=== PATIENT | female | born 1965 | race Caucasian/White ===

== ENCOUNTER 2023-10-26 13:09 | Outpatient (CLI) | payer OTHER ==
--- NOTE | 2023-10-26 16:38 | XRAY Report ---
PROCEDURE: Chest 2V INDICATIONS: CHEST DISCOMFORT TECHNIQUE: 2 views of the chest were acquired. COMPARISON: None. FINDINGS: Surgical changes and devices: None. Lungs and pleura: No pleural effusions or pneumothorax. Lungs are clear. Mediastinum: Mediastinal contours appear normal. Heart size is normal. Bones and chest wall: No suspicious bony lesions. Overlying soft tissues appear unremarkable. IMPRESSION: No acute cardiopulmonary process. Reviewed by: Beatrice Bernard MD on 10/26/2023 4:36 PM PDT Approved by: Beatrice Bernard MD on 10/26/2023 4:36 PM PDT Station ID: [id number]
[2023-10-26 19:40] LABS: BASOPHILS % (AUTO) 0.3 %; EOSINOPHILS % (AUTO) 0.1 %; HCT - HEMATOCRIT 42.7 % (37.0-47.0); HGB - HEMOGLOBIN 13.9 g/dL (12.0-16.0); LYMPHOCYTES % (AUTO) 8.4 %; MEAN CORPUSCULAR HEMOGLOBIN 28.5 pg (27.0-31.0); MEAN CORPUSCULAR HGB CONC 32.6 g/dL (32.0-36.0); MEAN CORPUSCULAR VOLUME 87.7 fL (81.0-99.0); MONOCYTES # (AUTO) 0.9 10^3/uL (0.0-1.0); MONOCYTES % (AUTO) 7.6 %; NEUTROPHILS # (AUTO) 10.3 10^3/uL (1.5-6.6); NEUTROPHILS % (AUTO) 83.4 %; PLT - PLATELET COUNT 264 10^3/uL (130-450); RED BLOOD COUNT 4.87 10^6/uL (4.20-5.40); RED CELL DISTRIBUTION WIDTH 13.2 % (12.0-15.0); WHITE BLOOD COUNT 12.3 x10^3/uL (4.8-10.8)
[2023-10-26 19:57] LABS: ALBUMIN 4.8 g/dL (3.2-5.5); ALBUMIN/GLOBULIN RATIO 1.7 (1.0-2.2); BILIRUBIN,TOTAL 0.7 mg/dL (0.2-1.0); CREATININE 0.7 mg/dL (0.6-1.3); POTASSIUM 3.7 mmol/L (3.5-4.5); TOTAL PROTEIN 7.6 g/dL (6.4-8.9)
[2023-10-26 20:10] LABS: THYROID STIMULATING HORMONE 0.65 uIU/mL (0.34-5.60)
[2023-10-26 20:28] LABS: ESTIMATED AVERAGE GLUCOSE 108 mg/dL (70-100); HEMOGLOBIN A1c% 5.4 % (4.27-6.07)
== END 2023-10-26 13:10 | disposition home or self-care (01) ==
LOC: DI.S 13:09
PROVIDERS: ATTEND Registered Nurse
DX: R07.89 Other chest pain (principal); D25.9 Leiomyoma of uterus, unspecified; G57.02 Lesion of sciatic nerve, left lower limb; M54.30 Sciatica, unspecified side; R52 Pain, unspecified; R68.83 Chills (without fever); K30 Functional dyspepsia; R00.2 Palpitations
CPT/HCPCS: 36415; 80053; 83036; 84443; 84484; 85025

== ENCOUNTER 2023-10-28 13:24 | Emergency (ER) | payer OTHER ==
--- NOTE | 2023-10-28 13:59 | ED Physician Documentation ---
PD HPI ABD PAIN - Stated complaint Stated Complaint: LRQ ABD PX, BLEED - Chief complaint Chief Complaint: Abd Pain - History obtained from History obtained from: Patient - History of Present Illness Timing - duration: Days (2) Timing - details: Gradual onset Pain level max: 7 Pain level now: 7 Quality: Aching, Pain Associated symptoms: Hematuria. No: Fever, Nausea, Vomiting, Hematemesis, Diarrhea, Constipation, Melena, Hematochezia, Dysuria, Chest pain, Dizzy, Near syncope / syncope, Loss of appetite, Weight loss, Vaginal bleeding, Vaginal dc - Additional information Additional information: Patient is a 58-year-old female who presents to the emergency department with 2 days of worsening right lower quadrant abdominal pain. Worse with movement, better with rest. She states the pain is gradually worsened over the past 2 day s. She states that it is worse going over bumps in the car. Has a known fibroid uterus, last measurement was approximately 15 cm subserosal fibroid in 2012. She is not on any medications at home. Has not had any nausea or vomiting. No diarrhea or constipation. No urinary symptoms. She went to the walk-in clinic and was sent here for evaluation. She was told that she had blood in her urine. She often has left flank pain but is not having left flank pain currently. Denies any vaginal bleeding or discharge. Denies any intra- abdominal surgeries in the past. Review of Systems Constitutional: denies: Fever, Chills GI: denies: Vomiting Skin: denies: Rash Musculoskeletal: denies: Neck pain Neurologic: denies: Headache PD PAST MEDICAL HISTORY - Past Medical History Past Medical History: Yes Cardiovascular: Hypertension Other Past Medical History: uterine fibroids - Past Surgical History Past Surgical History: No - Present Medications Home Medications: Ambulatory Orders Medication Instructions Recorded Confirmed Ibuprofen [Motrin] 800 mg PO Q8H PRN #30 tablet 10/28/23 Mupirocin 2% Oint [Bactroban 2% 1 applic TOP ONCE 10/28/23 10/28/23 Oint] Ondansetron Odt [Zofran] 4 mg TL Q6H PRN #10 tablet 10/28/23 - Allergies Allergies/Adverse Reactions: Allergies Allergy/AdvReac Type Severity Reaction Status Date / Time No Known Drug Allergies Allergy Verified 10/28/23 13:33 - Social History Does the pt smoke?: No Smoking Status: Never smoker Does the pt drink ETOH?: Yes ETOH Use: Wine Does the pt have substance abuse?: No Substance Use and Type: Marijuana - Immunizations Immunizations are current?: Yes PD ED PE NORMAL - Vitals Vital signs reviewed: Yes - General General: Alert and oriented X 3, No acute distress, Well developed/nourished - HEENT HEENT: PERRL, Moist mucous membranes - Neck Neck: Supple, no meningeal sign - Cardiac Cardiac: RRR, Strong equal pulses - Respiratory Respiratory: No respiratory distress, Clear bilaterally - Abdomen Abdomen: Soft, Non distended, Other (Tender to palpation right lower quadrant. No peritoneal signs. Also has a large firm fibroid uterus. Negative heeltap. Negative psoas and obturator signs.) - Back Back: No CVA TTP, No spinal TTP - Derm Derm: Warm and dry - Extremities Extremities: No edema, No calf tenderness / cord - Neuro Neuro: Alert and oriented X 3 - Psych Psych: Normal mood, Normal affect Results - Vitals Vitals: Vital Signs - 24 hr 10/28/23 10/28/23 13:33 15:55 Temperature 36.4 C L Heart Rate 93 68 Respiratory 16 15 Rate Blood Pressure 192/111 H 155/86 H O2 Saturation 99 100 Oxygen O2 Source Room air - Labs Labs: Laboratory Tests 10/28/23 10/28/23 10/28/23 13:58 14:06 14:15 WBC 9.6 RBC 4.82 Hgb 13.9 Hct 42.3 MCV 87.8 MCH 28.8 MCHC 32.9 RDW 13.1 Plt Count 270 MPV 9.9 Neut # (Auto) 7.3 H Lymph # (Auto) 1.4 L [place] # (Auto) 0.8 Eos # (Auto) 0.1 Baso # (Auto) 0.0 Absolute Nucleated RBC 0.00 Nucleated RBC % 0.0 Sodium 135 Potassium 3.4 L Chloride 102 Carbon Dioxide 22 Anion Gap 11.0 BUN 15 Creatinine 0.7 Estimated GFR (MDRD) 86 L Glucose 122 H Calcium 10.0 Total Bilirubin 0.5 AST 13 ALT 15 Alkaline Phosphatase 55 Total Protein 7.8 Albumin 4.5 Globulin 3.3 Albumin/Globulin Ratio 1.4 Lipase < 10 L Urine Color YELLOW Urine Clarity CLEAR Urine pH 6.0 Ur Specific [place] 1.010 Urine Protein NEGATIVE Urine Glucose (UA) NEGATIVE Urine Ketones NEGATIVE Urine Occult Blood MODERATE H Urine Nitrite NEGATIVE Urine Bilirubin NEGATIVE Urine Urobilinogen 0.2 (NORMAL) Ur Leukocyte Esterase NEGATIVE Urine RBC 0-5 Urine WBC 0-3 Ur Squamous Epith Cells RARE Squamous Urine Bacteria Rare Ur Microscopic Review INDICATED Urine Culture Comments NOT INDICATED - Rads (name of study) CT abdomen pelvis Relevant Findings:: Final report received, See rad report PD Medical Decision Making - ED course Complexity details: reviewed results, re-evaluated patient, considered differential, d/w patient, d/w investment consultant ED course: 58-year-old female with a large uterine mass, fibroid versus leiomyosarcoma. Discussed the case with Dr. Reddy, gynecology on-call, she recommends follow- up in the clinic next week. Will prescribe pain medication for home. Appendix is normal on CT. Discussed the results with the patient and her significant other. Patient counseled regarding signs and symptoms for which I believe and urgent re-evaluation would be necessary. Patient with good understanding of and agreement to plan and is comfortable going home at this time This document was made in part using voice recognition software. While efforts are made to proofread this document, sound alike and grammatical errors may occur. Departure - Departure Disposition: Home, Self Care Clinical Impression: Uterine mass Abdominal pain Qualifiers: Abdominal location: unspecified location Qualified Code(s): R10.9 - Unspecified abdominal pain Condition: Good Instructions: ED Abdominal Pain Female Non-Specific Abdominal Pain Follow-Up: Holly Reddy DO [Provider Admit Priv/Credential] - Within [address] [facility] [Provider Group] - Within 1 week Prescriptions: Ibuprofen [Motrin] 800 mg PO Q8H PRN #30 tablet PRN Reason: PAIN &/OR FEVER Ondansetron Odt [Zofran] 4 mg TL Q6H PRN #10 tablet PRN Reason: Nausea / Vomiting Comments: Your prescriptions were sent to [facility] in [place]. As we discussed you do have a large uterine mass, this could be a fibroid but may also be a leiomyosarcoma. I spoke with Dr. Reddy today, gynecology, she recommends that you follow-up in the clinic next week. Please call on Tuesday for an appointment. EXAM: CT/ABPEW (20409) PROCEDURE: Abdomen/Pelvis W INDICATIONS: RLQ abd pain CONTRAST: 100ml omni 300 TECHNIQUE: After the administration of intravenous contrast, a CT scan of the abdomen and pelvis was performed. Images were recorded and evaluated at appropriate window settings. Reformats: coronal and sagittal. For radiation dose reduction, the following was used: automated exposure control, adjustment of mA and/or kV according to patient size. COMPARISON: Pelvic ultrasound dated 11/13/2012 in which there was a 15 x 10 x 15 cm large subserosal vascular fibroid arising from the uterus. FINDINGS: Image quality: Diagnostic. Lower chest: Unremarkable. Liver: No solid mass. Gallbladder: No radiopaque stones or wall thickening. Biliary tree: No intrahepatic or extrahepatic dilation, accounting for age. Spleen: No splenomegaly. Pancreas: No pancreatic ductal dilation. Adrenals: No adrenal nodule. Kidneys and ureters: No hydronephrosis. No renal cystic lesion which requires follow up. No solid mass. Stomach, bowel and peritoneum: No gastric or small bowel dilation. No abnormal wall thickening. No pathologic free fluid. Question peritoneal implant disease versus unopacified bowel. Please refer to the section below entitled "reproductive organs". Lymph nodes: No central or retroperitoneal adenopathy. Vessels: No infrarenal aortic aneurysm. Patent portal vein. PELVIS Reproductive organs: Very large hypervascular uterine mass, of similar dimensions to the previous report. On image 73 of sagittal reformats series 6, it measures 15.0 cm in craniocaudal dimension. On axial image 85 of series 2 it measures 16.6 cm in transverse dimension and 11.9 cm in AP dimension. Subjacent to this mass, along the right lateral wall, in the right lo wer quadrant are multiple nodular densities which have an appearance which suggests possible peritoneal implant disease as opposed to nonopacified small bowel. For instance, at least 2 such nodular densities are present on axial image 77/2, measuring 1.7 x 1.5 cm and 2.0 x 2.5 cm respectively.. Bladder: No abnormal wall thickening, accounting for underdistention. Pelvic lymph nodes: No pelvic adenopathy by size criteria. Bones: No aggressive osseous abnormality. Other: No significant ventral or inguinal hernia. IMPRESSION: 1. There is a very large hypervascular uterine mass. It has similar dimensions to the fibroid present on the previous study from 2012. Typically a fibroid would shrink in size post menopausal an d the common less vascular. However, this is very vascular. Consider possible leiomyosarcoma. Alternatively, this can simply represent a massive fibroid which did not involute. 2. Additionally, there is a suggestion of possible peritoneal implant disease. Peritoneal implant disease is not definite. Comment: Recommend nonemergent CT of the abdomen and pelvis with both IV and oral contrast to evaluate possible peritoneal implant disease. Additionally, recommend PIPE SMOKER MACHINE OPERATOR consultation. Forms: PCP List Discharge Date/Time: 10/28/23 16:37
[2023-10-28 14:05] LABS: BASOPHILS % (AUTO) 0.3 %; EOSINOPHILS # (AUTO) 0.1 10^3/uL (0.0-0.7); EOSINOPHILS % (AUTO) 0.5 %; HCT - HEMATOCRIT 42.3 % (37.0-47.0); HGB - HEMOGLOBIN 13.9 g/dL (12.0-16.0); LYMPHOCYTES # (AUTO) 1.4 10^3/uL (1.5-3.5); MEAN CORPUSCULAR HEMOGLOBIN 28.8 pg (27.0-31.0); MEAN CORPUSCULAR HGB CONC 32.9 g/dL (32.0-36.0); MEAN CORPUSCULAR VOLUME 87.8 fL (81.0-99.0); MEAN PLATELET VOLUME 9.9 fL (7.9-10.8); MONOCYTES # (AUTO) 0.8 10^3/uL (0.0-1.0); MONOCYTES % (AUTO) 8.4 %; NEUTROPHILS # (AUTO) 7.3 10^3/uL (1.5-6.6); NEUTROPHILS % (AUTO) 75.6 %; PLT - PLATELET COUNT 270 10^3/uL (130-450); RED BLOOD COUNT 4.82 10^6/uL (4.20-5.40); RED CELL DISTRIBUTION WIDTH 13.1 % (12.0-15.0); WHITE BLOOD COUNT 9.6 x10^3/uL (4.8-10.8)
[2023-10-28 14:13] LABS: BILIRUBIN,URINE NEGATIVE (NEGATIVE); GLUCOSE, URINE (UA) NEGATIVE (NEGATIVE); KETONES,URINE (UA) NEGATIVE (NEGATIVE); LEUKOCYTE ESTERASE, URINE NEGATIVE (NEGATIVE); NITRITE,URINE NEGATIVE (NEGATIVE); OCCULT BLOOD,URINE MODERATE (NEGATIVE); PROTEIN,URINE NEGATIVE (NEGATIVE); UROBILINOGEN,URINE 0.2 (NORMAL) E.U./dL (NORMAL)
[2023-10-28 14:15] LABS: CLARITY,URINE CLEAR (CLEAR)
[2023-10-28 14:20] LABS: BACTERIA,URINE Rare /HPF (None Seen); RBC,URINE 0-5 /HPF (0-5); SQUAMOUS EPITHELIAL CELL,UR RARE Squamous (<= Few); WBC,URINE 0-3 /HPF (0-5)
[2023-10-28 14:36] LABS: ALBUMIN 4.5 g/dL (3.2-5.5); ALBUMIN/GLOBULIN RATIO 1.4 (1.0-2.2); ALKALINE PHOSPHATASE 55 IU/L (42-121); ALT ALANINE AMINOTRANSFERASE 15 IU/L (10-60); AST ASPARTATE AMINOTRANSFERASE 13 IU/L (10-42); BILIRUBIN,TOTAL 0.5 mg/dL (0.2-1.0); BUN - BLOOD UREA NITROGEN 15 mg/dL (6-20); CARBON DIOXIDE - CO2 22 mmol/L (21-32); CHLORIDE 102 mmol/L (101-111); CREATININE 0.7 mg/dL (0.6-1.3); GFR - MDRD 86 (>89); GLUCOSE 122 mg/dL (74-104); POTASSIUM 3.4 mmol/L (3.5-4.5); SODIUM 135 mmol/L (135-145); TOTAL PROTEIN 7.8 g/dL (6.4-8.9)
[2023-10-28 14:43] LABS: LIPASE < 10 U/L (11-82)
[2023-10-28] MEDS ORDERED: iohexoL-300 100 ML VIAL ONE (15:22)
[2023-10-28 16:04] VITALS: BP 155/86; O2SAT 100
--- NOTE | 2023-10-28 16:05 | CT Report ---
PROCEDURE: Abdomen/Pelvis W INDICATIONS: RLQ abd pain CONTRAST: 100ml omni 300 TECHNIQUE: After the administration of intravenous contrast, a CT scan of the abdomen and pelvis was performed. Images were recorded and evaluated at appropriate window settings. Reformats: coronal and sagittal. F or radiation dose reduction, the following was used: automated exposure control, adjustment of mA and /or kV according to patient size. COMPARISON: Pelvic ultrasound dated 11/13/2012 in which there was a 15 x 10 x 15 cm large subserosal vascular fibroid arising from the uterus. FINDINGS: Image quality: Diagnostic. Lower chest: Unremarkable. Liver: No solid mass. Gallbladder: No radiopaque stones or wall thickening. Biliary tree: No intrahepatic or extrahepatic dilation, accounting for age. Spleen: No splenomegaly. Pancreas: No pancreatic ductal dilation. Adrenals: No adrenal nodule. Kidneys and ureters: No hydronephrosis. No renal cystic lesion which requires follow up. No solid mas s. Stomach, bowel and peritoneum: No gastric or small bowel dilation. No abnormal wall thickening. No pa thologic free fluid. Question peritoneal implant disease versus unopacified bowel. Please refer to th e section below entitled "reproductive organs". Lymph nodes: No central or retroperitoneal adenopathy. Vessels: No infrarenal aortic aneurysm. Patent portal vein. PELVIS Reproductive organs: Very large hypervascular uterine mass, of similar dimensions to the previous rep ort. On image 73 of sagittal reformats series 6, it measures 15.0 cm in craniocaudal dimension. On ax ial image 85 of series 2 it measures 16.6 cm in transverse dimension and 11.9 cm in AP dimension. Sub jacent to this mass, along the right lateral wall, in the right lower quadrant are multiple nodular d ensities which have an appearance which suggests possible peritoneal implant disease as opposed to no nopacified small bowel. For instance, at least 2 such nodular densities are present on axial image 77 /2, measuring 1.7 x 1.5 cm and 2.0 x 2.5 cm respectively.. Bladder: No abnormal wall thickening, accounting for underdistention. Pelvic lymph nodes: No pelvic adenopathy by size criteria. Bones: No aggressive osseous abnormality. Other: No significant ventral or inguinal hernia. IMPRESSION: 1. There is a very large hypervascular uterine mass. It has similar dimensions to the fibroid present on the previous study from 2013. Typically a fibroid would shrink in size post menopausal and the co mmon less vascular. However, this is very vascular. Consider possible leiomyosarcoma. Alternatively, this can simply represent a massive fibroid which did not involute. 2. Additionally, there is a suggestion of possible peritoneal implant disease. Peritoneal implant dis ease is not definite. Comment: Recommend nonemergent CT of the abdomen and pelvis with both IV and oral contrast to evaluat e possible peritoneal implant disease. Additionally, recommend ELECTRONIC COMPONENT PROCESSOR consultation. Reviewed by: Carlos Urban MD on 10/28/2023 4:04 PM PDT Approved by: Carlos Urban MD on 10/28/2023 4:04 PM PDT Station ID: [id number]
[2023-10-28] MEDS: iohexoL-300 100 ML VIAL IVP ONE (18:54)
== END 2023-10-28 16:37 | disposition home or self-care (01) ==
LOC: ED 13:24
DX: N85.9 Noninflammatory disorder of uterus, unspecified (principal); R10.31 Right lower quadrant pain; I10 Essential (primary) hypertension; D25.9 Leiomyoma of uterus, unspecified
CPT/HCPCS: 36415; 74177; 80053; 81001; 83690; 85025; 99284; Q9967; 81003; 87086

== ENCOUNTER 2023-11-09 12:07 | Outpatient (CLI) | payer OTHER ==
[2023-11-09] MEDS ORDERED: iohexoL-300 100 ML VIAL ONE (12:49)
[2023-11-09] MEDS ORDERED: DIATRIZOATE MEGLU/DIATRIZO SOD 30 ML BOTTLE PO ONE (13:34)
[2023-11-09] MEDS: DIATRIZOATE MEGLU/DIATRIZO SOD 30 ML BOTTLE PO ONE (15:06)
[2023-11-09] MEDS: iohexoL-300 100 ML VIAL IVP ONE (15:06)
--- NOTE | 2023-11-09 16:56 | CT Report ---
PROCEDURE: Pelvis W INDICATIONS: UTERINE FIBROIDS CONTRAST: Omni 300 100ml TECHNIQUE: After the administration of intravenous contrast, a CT scan of the pelvis was performed. Images were recorded and evaluated at appropriate window settings. Reformats: axial MIP of the chest, coronal an d sagittal. For radiation dose reduction, the following was used: automated exposure control, adjustm ent of mA and/or kV according to patient size. COMPARISON: CT 10/28/2023 FINDINGS: Image quality: Diagnostic Lower abdomen: No bowel obstruction. There is a small amount pelvic free fluid. Bladder: Unremarkable Reproductive organs: Very large mass in the pelvis measuring 15.6 x 15.4 cm on today's study., Likely arising from the uterine fundus. There are prominent veins in the pelvis. Mild pelvic loculated flui d is present. There are pelvic implants, for example in the lower right paracolic gutter measuring 1. 2 cm in short axis. Rectum: Unremarkable Vessels and lymph nodes: No pathologic lymphadenopathy by size criteria in the subperitoneal space or retroperitoneal space. No aneurysmal vessel in the [id number] Pelvic wall: Unremarkable Bones: No acute or suspicious osseous finding. IMPRESSION: Hypervascular uterine mass with small amount of loculated pelvic ascites and possible adjacent perito dwight implants, suspicious for sarcoma or carcinoma with peritoneal carcinomatosis/sarcomatosis versus metastasizing benign leiomyoma. Consider tissue acquisition. Reviewed by: Franck Ferrer MD on 11/09/2023 4:55 PM PDT Approved by: Franck Ferrer MD on 11/09/2023 4:55 PM PDT Station ID: [id number]
== END 2023-11-09 12:08 | disposition home or self-care (01) ==
LOC: DI 12:07
PROVIDERS: ATTEND Obstetrics & Gynecology
DX: N85.9 Noninflammatory disorder of uterus, unspecified (principal); R18.8 Other ascites
CPT/HCPCS: 72193; Q9963; Q9967

== ENCOUNTER 2023-11-23 12:25 | Outpatient (CLI) | payer OTHER | END 2023-11-23 12:26 | disposition home or self-care (01) | LOC: LAB.S 12:25 | PROVIDERS: ATTEND Obstetrics & Gynecology Gynecologic Oncology | DX: R19.00 Intra-abdominal and pelvic swelling, mass and lump, unspecified site (principal); R10.2 Pelvic and perineal pain | CPT/HCPCS: 36415; 86304 ==